=== PATIENT | male | born 1955 | race Caucasian/White ===

== ENCOUNTER 2017-07-06 13:10 | Inpatient (IN) | END 2017-08-05 16:45 | disposition left against medical advice (07) | DRG 871 ==

== ENCOUNTER 2017-08-08 10:22 | Emergency (ER) | END 2017-08-08 16:25 | disposition left against medical advice (07) ==

== ENCOUNTER 2017-08-09 00:02 | Emergency (ER) | END 2017-08-09 00:33 | disposition left against medical advice (07) ==

== ENCOUNTER → 2017-08-09 08:47 | Emergency (ER) | END | disposition left against medical advice (07) ==

== ENCOUNTER 2017-08-14 17:40 | Inpatient (IN) | END 2017-08-17 17:41 | disposition home or self-care (01) | DRG 291 ==

== ENCOUNTER 2017-08-23 15:50 | Emergency (ER) | END 2017-08-23 23:20 | disposition left against medical advice (07) ==

== ENCOUNTER 2017-09-21 18:43 | Inpatient (IN) | END 2017-10-17 14:30 | disposition home health service (06) | DRG 603 ==

== ENCOUNTER 2017-11-03 11:12 | Emergency (ER) | END 2017-11-03 13:28 | disposition home or self-care (01) ==